=== PATIENT | female | born 1980 | race Caucasian/White ===

== ENCOUNTER 2018-01-22 21:39 | Observation (INO) | payer SELFPAY ==
[2018-01-22 21:40] VITALS: BP 128/80; PULSE 125; RESP 14; TEMP 36.4; O2SAT 99; BMI 24.5
[2018-01-22 22:12] LABS: Absolute Lymphocyte Count 1.37 X10^3/ul (0.83-4.51); Absolute Neutrophil Count 10.2 X10^3/uL (2.0-7.7); Basophil# 0.03 X10^3/uL; Basophil% 0.2 % (0-1); Eosinophil# 0.01 X10^3/uL; Eosinophils% 0.1 % (0-5); Hematocrit 46.1 % (37-47); Hemoglobin 16.1 g/dl (12.0-15.0); Lymphocyte # 1.37 X10^3/ul (4.0); Lymphocyte % 11.3 % (19-41); Mean Corp Hgb Conc 34.9 g/gl (32-36); Mean Corpuscular Hgb 32.4 pg (27.0-32.0); Mean Corpuscular Volume 92.8 fL (81-99); Mean Platelet Vol. 9.4 fl (6.2-12.0); Monocyte# 0.48 X10^3/uL; Neutrophil # 10.24 X10^3/uL (2.7-7.7); Neutrophil % 84.2 % (47-70); Platelet Count 222 K/mm3 (150-450); RBC Distribution Width CV 12.6 % (11.6-14.6); RBC Distribution Width SD 43.1 fl (35.1-43.9); Red Blood Count 4.97 M/mm3 (4.2-5.4); White Blood Count 12.2 K/mm3 (4.4-11.0)
[2018-01-22 22:23] LABS: Anion Gap 12 (5-15); BUN 7 mg/dL (7-18); BUN/Creat Ratio 11.4 RATIO (10-20); Calcium,Total 9.5 mg/dL (8.5-10.1); Chloride 102 mmol/L (98-107); Creatinine, Serum 0.61 mg/dL (0.55-1.02); EST Glomerular Filtration Rate 115 mL/min (>60); Est Glom Filt Rate - Afr Amer 139 mL/min (>60); Estimated Creatinine Clearance 138.39 ml/min; Glucose 125 mg/dL (74-106); Potassium 4.1 mmol/L (3.5-5.1); Sodium Level 135 mmol/L (136-145)
[2018-01-22 22:32] LABS: POSITIVE COUNT NO; POSITIVE DIFFERENTIAL NO; POSITIVE MORPHOLOGY NO
[2018-01-22 22:37] LABS: Red Blood Cells-Urine 0 SEEN /hpf (0-5); White Blood Cells 0 SEEN /hpf (0-5)
[2018-01-22 22:39] LABS: Color, Urine Yellow (Yellow); Glucose, Dipstick Normal (Normal); Ketone-Dipstick 15 mg/dl (Negative); Leukocyte Esterase-Dipstick Negative /ul (Negative); Nitrite-Dipstick Negative (Negative); Occult Blood-Urine 25 /ul (Negative); Protein-Dipstick Negative (Negative); Specific Gravity, Urine 1.025 (1.002-1.030); Urine Bilirubin Dipstick Negative (Negative); Urine Clarity Clear (Clear); Urine Urobilinogen Normal (Normal)
[2018-01-22 22:46] LABS: Squamous Epithelial Cells - UA 0-5 SEEN /hpf (5-10)
[2018-01-22 22:47] LABS: Bacteria 1+ /hpf (None Seen); Mucous, Urine 2+ /hpf (<or=2+)
[2018-01-22 22:56] VITALS: BP 116/87; PULSE 100; RESP 16; O2SAT 97
[2018-01-22] MEDS: Ondansetron 4 MG/2 ML Vial IV (23:03)
[2018-01-22] MEDS: 0.9% Normal Saline 1,000 ML 1000 ML IV (23:03)
[2018-01-22] MEDS: HYDROmorphone 1 MG/ML Syringe IV ×2 (23:05→23:37)
--- NOTE | 2018-01-22 23:11 | ED.DCSUM_ITS ---
- ER Visit Summary Date of Service: 01/22/18 Chief Complaint: [Abdominal pain] History of Present Illness: The patient is a 37 F [presents to the emergency department complaint of abdominal pain that started around 10 PM yesterday evening. Patient states that the pain came on gradually. Pain is been baetriz nuous and radiates to her back. Patient states that she did not even try to eat today. Patient states that she has had a history of pancreatitis in the past. She did drink one beer yesterday but has not been drinking heavily otherwise. Patient denies any fever. She denies any blood in her stool or black tarry stools. She denies any urinary symptoms. Patient does have a history of SVT and she is had prior hysterectomy. Patient has no primary care physician. Patient has had some nausea but no vomiting.] Physical Examination: [HEENT-PERRLA, EOMI. Cranial nerves II through XII grossly intact. TMs clear. Mucous membranes moist. No adenopathy. Cardiovascular-regular rate and rhythm without murmur or ectopy Lungs-clear to auscultation, chest wall stable without crepitus or subcu emphysema Abdomen-normoactive bowel sounds, soft. Patient does have tenderness palpation over the epigastric region and left upper quadrant. Minimal tenderness in the right upper quadrant and she has a negative Fitzgerald sign. There is no rebound, rigidity, or perineal signs. Extremities-intact ?4, normal range of motion, normal pulses, atraumatic] Test Results: [CBC with differential obtained showing a 12.3, hemoglobin 16, hematocrit 46, platelets 222. Chemistries unremarkable. Urinalysis was normal.] Emergency Department Course and Treatment: [] Treatment Plan: [] Disposition: [] Impression: [] This note was generated with [employer] dictation software. It may contain incorrect words, spelling, and punctuation that were not noted in review of the chart prior to signing ED Disposition - Plan for ED Patient: Chief Complaint: Abd Pain Referrals: Care Physician,No Primary [Primary Care Provider] -
[2018-01-22 23:24] LABS: AST(SGOT) 56 U/L (15-37); Alanine Aminotransfer ALT/SGPT 82 U/L (13-56); Alkaline Phosphatase 107 U/L (45-117); Bilirubin, Direct 0.18 mg/dL (0.00-0.30); Globulin 4.2 g/dL (2.2-4.2); Protein, Total 8.2 g/dL (6.4-8.2)
[2018-01-22 23:25] LABS: Lipase 938 U/L (73-393)
--- NOTE | 2018-01-22 23:28 | US_ITS ---
STUDY: ABDOMINAL ULTRASOUND - RIGHT UPPER QUADRANT REASON FOR VISIT: Female, 37 years old. Abdominal pain TECHNIQUE: Ultrasound evaluation of the right upper quadrant was performed with real-time and static tovar-scale imaging. TECHNICAL QUALITY: Adequate. COMPARISON: None. FINDINGS: Liver: The liver measures 21.1 cm. There is increased echogenicity consistent with fatty infiltration. The bile ducts are within normal limits. There is hepatic color flow. The direction of portal flow is hepatopetal. There is no demonstrated mass lesion. Gallbladder: Normal distended gallbladder. The gallbladder wall measures 2 mm. There is a negative sonographic Fitzgerald's sign. There is no pericholecystic fluid. There are no gallstones. Common Bile Duct (C.B.D.): The common bile duct measures 3 mm. Pancreas: Normal size of the head, body and tail of the pancreas. There is normal echogenicity of the pancreas. There is no demonstrated pancreatic mass or cyst. Right Kidney: Normal size of the right kidney. The right kidney measures 12.2 x 5.9 x 4.4 cm. Normal renal cortex. The right cortex measures 1.3 cm. There is no demonstrated renal mass or cyst. There is no right hydronephrosis. US/Gallbladder IMPRESSION: The liver is enlarged and fatty. There is NO mass. There is NO cholelithiasis, cholecystitis or biliary ductal dilatation. Electronically Signed: Gurpreet Ness MD at 0:33 EST , Service support ,
[2018-01-22 23:30] VITALS: BP 133/87; PULSE 103; RESP 16; O2SAT 95
--- NOTE | 2018-01-23 00:39 | HP.PCM_ITS ---
History of Present Illness Date of Admission: 01/23/18 Chief Complaint: abdominal pain The patient is a 37 year old F with a history of recurrent pancreatitis of unknown etiology, endometriosis status post hysterectomy. She was admitted through the ED on 01/23/2018 with a complaint of abdominal pain of one days duration. Pain was sharp, mainly in the epigastric region radiating to her back. Had no aggravating or relieving factors. She denied any assisted fever or chills, nausea vomiting or diarrhea. She states she had about 2 drinks yesterday and also smokes 1 pack daily. She therefore decided to come to the ED since the pain was persistent. Vitals in ED was significant for pulse rate of 103 was otherwise unremarkable. Chemistry was significant for sodium of 135 and lipase of 938 and CBC showed white cell count of 12.2 hemoglobin of 16.1. Gallbladder ultrasound showed enlarged fatty liver with no obvious masses and a normal distended gallbladder with no pericholecystic fluid and no gallstones. Pancreas is also normal. She is been admitted to be managed for acute pancreatitis. [] Past Medical History Past Medical History (Chronic Problems): Chronic Problems Pancreatitis (Chronic) Endometriosis (Chronic) Alcohol abuse (Chronic) Allergies Sulfa (Sulfonamide Antibiotics) Allergy (Verified 01/22/18 21:44) Hives Home Medications: Ambulatory Orders Medication Instructions Recorded NK 01/22/18 Surgical History: - - Hysterectomy. 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 Denies: Diarrhea, Dyspepsia, Hematemesis, Nausea, Melena, Vomiting Genitourinary: Denies: Dysuria Musculoskeletal: Denies: Joint Pain, Joint Tenderness Skin: Denies: Rash, Wounds Neurological: Denies: Numbness, Tingling, Focal weakness Psychiatric: Denies: Anxiety, Depression, Homicidal Ideations, Suicidal Ideations Hematologic/ Lymphatic: Denies: Easy Bruising, Easy Bleeding VTE Information - Inpt Only VTE Present on Admission: No VTE Pharm Prophylaxis ordered?: Yes - Physical Exam General: Alert, Oriented x3, Cooperative, No apparent distress HEENT: Atraumatic, PERRLA, EOMI, Normocephalic Oral: Moist Mucosa Neck: Supple, No JVD, Negative Carotid Bruits Lungs: Clear to auscultation, Normal air movement Cardiovascular: Regular Rhythm, Normal S1, Normal S2, No murmurs, Tachycardic Abdomen: Bowel Sounds Present, Soft, - - Mild epigastric tenderness with no guarding or rebound tenderness. Fitzgerald sign negative. Extremities: No clubbing, No cyanosis, No edema, Capillary Refill Less than 3 Seconds Skin: No rashes, No breakdown Musculoskeletal: No Tenderness to Palpation of Joints or Extremities Lymphatic: No Cervical, Supraclavicular, or Inguinal Adenopathy Neurological: Cranial nerves II-XII grossly intact, Neuro grossly intact, Motor Exam 5/5 strength throughout Psych/Mental Status: Normal Affect, Appropriate, Alert and oriented to time, place, person, mood and affect Vital Signs Temp Pulse Resp BP Pulse Ox 97.6 F L 100 16 116/87 H 97 01/22/18 21:40 01/22/18 22:56 01/22/18 22:56 01/22/18 22:56 01/22/18 22:56 Oxygen Delivery Method Room Air Weight: 175 lb 11.335 oz Body Mass Index (BMI) 24.5 Laboratory Tests Past 24 Hrs 01/22/18 01/22/18 01/22/18 22:03 22:03 22:03 WBC 12.2 H RBC 4.97 Hgb 16.1 H Hct 46.1 MCV 92.8 MCH 32.4 H MCHC 34.9 RDW 12.6 RDW Differential 43.1 Plt Count 222 MPV 9.4 Immature Gran % (Auto) 0.200 Neut % (Auto) 84.2 H Lymph % (Auto) 11.3 L [place] % (Auto) 4.0 Eos % (Auto) 0.1 Baso % (Auto) 0.2 Absolute Neuts (auto) 10.2 H Absolute Lymphs (auto) 1.37 Total Counted Not Reportable Sodium 135 L Potassium 4.1 Chloride 102 Carbon Dioxide 21.0 Anion Gap 12 BUN 7 Creatinine 0.61 Estim Creat Clear Calc 138.39 Est GFR (MDRD) Af Amer 139 Est GFR (MDRD) Non-Af 115 BUN/Creatinine Ratio 11.4 Glucose 125 H Calcium 9.5 Total Bilirubin 0.60 Direct Bilirubin 0.18 AST 56 H ALT 82 H Alkaline Phosphatase 107 Total Protein 8.2 Albumin 4.0 Globulin 4.2 Lipase Urine Color Urine Clarity Urine pH Ur Specific [place] Urine Protein Urine Glucose (UA) Urine Ketones Urine Occult Blood Urine Nitrite Urine Bilirubin Urine Urobilinogen Ur Leukocyte Esterase Urine RBC Urine WBC Ur Squamous Epith Cells Urine Bacteria Urine Mucus 01/22/18 01/22/18 22:03 22:28 WBC RBC Hgb Hct MCV MCH MCHC RDW RDW Differential Plt Count MPV Immature Gran % (Auto) Neut % (Auto) Lymph % (Auto) [place] % (Auto) Eos % (Auto) Baso % (Auto) Absolute Neuts (auto) Absolute Lymphs (auto) Total Counted Sodium Potassium Chloride Carbon Dioxide Anion Gap BUN Creatinine Estim Creat Clear Calc Est GFR (MDRD) Af Amer Est GFR (MDRD) Non-Af BUN/Creatinine Ratio Glucose Calcium Total Bilirubin Direct Bilirubin AST ALT Alkaline Phosphatase Total Protein Albumin Globulin Lipase 938 H Urine Color Yellow Urine Clarity Clear Urine pH 5.0 Ur Specific [place] 1.025 Urine Protein Negative Urine Glucose (UA) Normal Urine Ketones 15 H Urine Occult Blood 25 H Urine Nitrite Negative Urine Bilirubin Negative Urine Urobilinogen Normal Ur Leukocyte Esterase Negative Urine RBC 0 SEEN Urine WBC 0 SEEN Ur Squamous Epith Cells 0-5 SEEN Urine Bacteria 1+ Urine Mucus 2+ Diagnostic Data Gallbladder Ultrasound 01/22/18 23:28 IMPRESSION: The liver is enlarged and fatty. There is NO mass. There is NO cholelithiasis, cholecystitis or biliary ductal dilatation. Electronically Signed: Gurpreet Ness MD at 0:33 EST , Service support , Assessment/Plan All Active Problems Pancreatitis (Acute) Acute recurrent pancreatitis (Acute) 37-year-old female presenting with a 1 day history of epigastric pain. 1. Acute pancreatitis, possibly alcohol induced * epigastric pain present for 1 day; radiating to her back * lipase elevated at 938; gallbladder USG negative for gallstones * had 2 drinks yesterday * will check lipid panel and TGs * admit to med surg * keep NPO; IVF NS @ 150cc/hr * IV morphine prn for pain * will advance diet tomorrow if pain is improved * 2. History of endometriosis s/p hysterectomy: stable DVT prophylaxis: heparin GI prophylaxis: PPI Code Visit OBSV E&M: 70562 Initial observation care L3
--- NOTE | 2018-01-23 00:49 | ED.DCSUM_ITS ---
- ER Visit Summary Date of Service: 01/23/18 Chief Complaint: [Abdominal pain/addendum to initial dictation] History of Present Illness: The patient is a 37 F [the initial dictation] Physical Examination: [See initial dictation] Test Results: [See initial dictation and gallbladder ultrasound obtained showed no evidence for cholecystitis and no gallstones seen.] Emergency Department Course and Treatment: [Patient was medicated with Dilaudid and Zofran. Patient was given normal saline.] Treatment Plan: [Admit for pain control and IV hydration] Disposition: [Admit] Impression: [Acute pancreatitis] This note was generated with [employer] dict[employer] software. It may contain incorrect words, spelling, and punctuation that were not noted in review of the chart prior to signing ED Disposition - Plan for ED Patient: Chief Complaint: Abd Pain Referrals: Care Physician,No Primary [Primary Care Provider] -
[2018-01-23 01:17] VITALS: BP 114/78; PULSE 78; RESP 16; O2SAT 95
[2018-01-23] MEDS: proMETHazine 25 MG/ML Syringe 6.25 MG IV (01:34)
[2018-01-23] MEDS: HYDROmorphone 1 MG/ML Syringe IV ×3 (01:36→05:44)
[2018-01-23] MEDS: 0.9% Normal Saline 1,000 ML 150 ML IV (02:14)
[2018-01-23 03:01] VITALS: RESP 16
[2018-01-23 03:38] VITALS: BP 109/70; PULSE 72; RESP 16; O2SAT 95
[2018-01-23 05:46] VITALS: BP 109/59; PULSE 69; RESP 16; O2SAT 96
[2018-01-23 06:24] VITALS: RESP 16
--- NOTE | 2018-01-23 07:47 | PCM.DC.SUM ---
Discharge Date and Diagnosis Date of Admission: 01/23/18 Date of Discharge: 01/23/18 - Primary Discharge Diagnosis Acute pancreatitis, etiology unclear, probably alcohol induced Patient signed AMA. - Secondary Discharge Diagnosis Chronic Problems Pancreatitis (Chronic) Endometriosis (Chronic) Alcohol abuse (Chronic) Hospital Course and Treatment Imaging Results: 01/22/18 23:28 Gallbladder [US] Stat Summary of Care Provided: The patient is a 37 year old F with history of recurrent admission of acute pancreatitis in the past 2 years was admitted with 1 day history of epigastric pain with radiation to back and elevated lipase 938 suggestive of acute pancreatitis. Patient claims drinking alcohol about 5-6 drinks of beer in 1 month and denies alcohol dependence/problem drinking. She had GB ultrasound was done which showed liver enlarged and fatty with no cholelithiasis, cholecystitis or biliary ductal dilatation. Normal size of head, body and tail of pancreas. No pancreatic mass or cyst. Patient was advised to stay for further treatment of acute pancreatitis but she is adamant on signing AMA and going home. Patient was advised to follow-up PCP. Clinical Impression(s) from Imaging Studies Gallbladder Ultrasound 01/22/18 23:28 IMPRESSION: The liver is enlarged and fatty. There is NO mass. There is NO cholelithiasis, cholecystitis or biliary ductal dilatation. Laboratory Results 01/22/18 22:03: WBC 12.2 H, RBC 4.97, Hgb 16.1 H, Hct 46.1, MCV 92.8, MCH 32.4 H, MCHC 34.9, RDW 12.6, RDW Differential 43.1, Plt Count 222, MPV 9.4, Immature Gran % (Auto) 0.200, Neut % (Auto) 84.2 H, Lymph % (Auto) 11.3 L, [place] % (Auto) 4.0, Eos % (Auto) 0.1, Baso % (Auto) 0.2, Absolute Neuts (auto) 10.2 H, Absolute Lymphs (auto) 1.37, Total Counted Not Reportable 01/22/18 22:03: Sodium 135 L, Potassium 4.1, Chloride 102, Carbon Dioxide 21.0, Anion Gap 12, BUN 7, Creatinine 0.61, Estim Creat Clear Calc 138.39, Est GFR (MDRD) Af Amer 139, Est GFR (MDRD) Non-Af 115, BUN/Creatinine Ratio 11.4, Glucose 125 H, Calcium 9.5 01/22/18 22:03: Total Bilirubin 0.60, Direct Bilirubin 0.18, AST 56 H, ALT 82 H, Alkaline Phosphatase 107, Total Protein 8.2, Albumin 4.0, Globulin 4.2 01/22/18 22:03: Lipase 938 H 01/22/18 22:28: Urine Color Yellow, Urine Clarity Clear, Urine pH 5.0, Ur Specific [place] 1.025, Urine Protein Negative, Urine Glucose (UA) Normal, Urine Ketones 15 H, Urine Occult Blood 25 H, Urine Nitrite Negative, Urine Bilirubin Negative, Urine Urobilinogen Normal, Ur Leukocyte Esterase Negative, Urine RBC 0 SEEN, Urine WBC 0 SEEN, Ur Squamous Epith Cells 0-5 SEEN, Urine Bacteria 1+, Urine Mucus 2+ [] Subjective: Patient states his pain is resolved. Denies abdominal pain, nausea or vomiting. Patient all dressed up in a private dress and sitting on the sofa; about to leave - Physical Exam General: Alert, Oriented x3, Cooperative HEENT: Atraumatic, PERRLA, EOMI, Normocephalic Neck: Supple, No JVD, Negative Carotid Bruits Lungs: Clear to auscultation, Normal air movement, No rhonchi, No wheeze, No rales Cardiovascular: Regular rate, No murmurs Abdomen: Bowel Sounds Present, Soft, - - Mild deep epigastric tenderness with no guarding or rigidity. No rebound tenderness. Extremities: No edema, Capillary Refill Less than 3 Seconds Skin: No rashes, No breakdown Musculoskeletal: No Tenderness to Palpation of Joints or Extremities Neurological: Cranial nerves II-XII grossly intact, Deep Tendon Reflexes 2+/4 and Symmetrical, Neuro grossly intact Psych/Mental Status: Normal Affect, Appropriate Vital Signs Temp Pulse Resp BP Pulse Ox 97.6 F L 69 16 109/59 L 96 01/22/18 21:40 01/23/18 05:46 01/23/18 06:24 01/23/18 05:46 01/23/18 05:46 Oxygen Delivery Method Room Air Weight: 175 lb 11.335 oz Body Mass Index (BMI) 24.5 Laboratory Tests Past 24 Hrs 01/22/18 01/22/18 01/22/18 22:03 22:03 22:03 WBC 12.2 H RBC 4.97 Hgb 16.1 H Hct 46.1 MCV 92.8 MCH 32.4 H MCHC 34.9 RDW 12.6 RDW Differential 43.1 Plt Count 222 MPV 9.4 Immature Gran % (Auto) 0.200 Neut % (Auto) 84.2 H Lymph % (Auto) 11.3 L [place] % (Auto) 4.0 Eos % (Auto) 0.1 Baso % (Auto) 0.2 Absolute Neuts (auto) 10.2 H Absolute Lymphs (auto) 1.37 Total Counted Not Reportable Sodium 135 L Potassium 4.1 Chloride 102 Carbon Dioxide 21.0 Anion Gap 12 BUN 7 Creatinine 0.61 Estim Creat Clear Calc 138.39 Est GFR (MDRD) Af Amer 139 Est GFR (MDRD) Non-Af 115 BUN/Creatinine Ratio 11.4 Glucose 125 H Calcium 9.5 Total Bilirubin 0.60 Direct Bilirubin 0.18 AST 56 H ALT 82 H Alkaline Phosphatase 107 Total Protein 8.2 Albumin 4.0 Globulin 4.2 Lipase Urine Color Urine Clarity Urine pH Ur Specific [place] Urine Protein Urine Glucose (UA) Urine Ketones Urine Occult Blood Urine Nitrite Urine Bilirubin Urine Urobilinogen Ur Leukocyte Esterase Urine RBC Urine WBC Ur Squamous Epith Cells Urine Bacteria Urine Mucus 01/22/18 01/22/18 22:03 22:28 WBC RBC Hgb Hct MCV MCH MCHC RDW RDW Differential Plt Count MPV Immature Gran % (Auto) Neut % (Auto) Lymph % (Auto) [place] % (Auto) Eos % (Auto) Baso % (Auto) Absolute Neuts (auto) Absolute Lymphs (auto) Total Counted Sodium Potassium Chloride Carbon Dioxide Anion Gap BUN Creatinine Estim Creat Clear Calc Est GFR (MDRD) Af Amer Est GFR (MDRD) Non-Af BUN/Creatinine Ratio Glucose Calcium Total Bilirubin Direct Bilirubin AST ALT Alkaline Phosphatase Total Protein Albumin Globulin Lipase 938 H Urine Color Yellow Urine Clarity Clear Urine pH 5.0 Ur Specific [place] 1.025 Urine Protein Negative Urine Glucose (UA) Normal Urine Ketones 15 H Urine Occult Blood 25 H Urine Nitrite Negative Urine Bilirubin Negative Urine Urobilinogen Normal Ur Leukocyte Esterase Negative Urine RBC 0 SEEN Urine WBC 0 SEEN Ur Squamous Epith Cells 0-5 SEEN Urine Bacteria 1+ Urine Mucus 2+ Home Medications: Medications to take at Discharge NK 01/22/18 Primary Care Physician: Care Physician,No Primary [Primary Care Provider] - Medical Necessity - Tobacco Use Smoking Status: Current every day smoker Tobacco Use: Cigarettes - Pack daily Meaningful Use Info Meaningful Use Diagnoses (Choose all that apply): None applicable Code Visit Inpatient E&M: 90165 Disch Hosp
--- OUTSIDE RECORDS SUMMARY | 2018-04-26 06:35 | XMS RPT_ITS ---
:1980 Author Organization OH[facility] Care Team Providers Name Role Phone Primay Care Physicia, No Primary Care Unavailable Koram, Dominique Мария Admitting Unavailable Adolfo Juares Attending Unavailable Koram, Dominique Hsieh Admitting Unavailable Koram, Dominique Мария Attending Unavailable Primay Care Physicia, No Primary Care Unavailable Koram, Dominique Мария Consulting Unavailable PROBLEMS PROBLEMS No Problem Records FoundPROCEDURES PROCEDURES No Procedure Records FoundRESULTS RESULTS DISCHARGE SUMMARY Observed: 01/23/2018 Status: F Source: [place] 7:54 AM [facility] REPOSITORY [facility] Medical Records Department [address] [place] [address] Discharge Summary 01/23/18 0747 MR#: [id number] Acct: [id number] Name: YESIKA ISBELL Rep #: [id number] : 1980 37 From: Adolfo Juares MD PCP: Care Physician, No Primary Status: DIS TAMRA Y Location: [place] [address] Discharge Date and Diagnosis Date of Admission: 01/23/18 Date of Discharge: 01/23/18 - Primary Discharge Diagnosis Acute pancreatitis, etiology unclear, probably alcohol induced Patient signed AMA. - Secondary Discharge Diagnosis Chronic Problems Pancreatitis (Chronic) Endometriosis (Chronic) Alcohol abuse (Chronic) Hospital Course and Treatment Imaging Results: 01/22/18 23:28 Gallbladder [US] Stat Summary of Care Provided: The patient is a 37 year old F with history of recurrent admission of acute pancreatitis in the past 2 years was admitted with 1 day history of epigastric pain with radiation to back and elevated lipase 938 suggestive of acute pancreatitis. Patient claims drinking alcohol about 5-6 drinks of beer in 1 month and denies alcohol dependence/problem drinking. She had GB ultrasound was done which showed liver enlarged and fatty with no cholelithiasis, cholecystitis or biliary ductal dilatation. Normal size of head, body and tail of pancreas. No pancreatic mass or cyst. Patient was advised to stay for further treatment of acute pancreatitis but she is adamant on signing AMA and going home. Patient was advised to follow-up PCP. Clinical Impression(s) from Imaging Studies Gallbladder Ultrasound 01/22/18 23:28 IMPRESSION: The liver is enlarged and fatty. There is NO mass. There is NO cholelithiasis, cholecystitis or biliary ductal dilatation. Laboratory Results 01/22/18 22:03: WBC 12.2 H, RBC 4.97, Hgb 16.1 H, Hct 46.1, MCV 92.8, MCH 32.4 H, MCHC 34.9, RDW 12.6, RDW Differential 43.1, Plt Count 222, MPV 9.4, Immature Gran % (Auto) 0.200, Neut % (Auto) 84.2 H, Lymph % (Auto) 11.3 L, Sutter % (Auto) 4.0, Eos % (Auto) 0.1, Baso % (Auto) 0.2, Absolute Neuts (auto) 10.2 H, Absolute Lymphs (auto) 1.37, Total Counted Not Reportable 01/22/18 22:03: Sodium 135 L, Potassium 4.1, Chloride 102, Carbon Dioxide 21.0, Anion Gap 12, BUN 7, Creatinine 0.61, Estim Creat Clear Calc 138.39, Est GFR (MDRD) Af Amer 139, Est GFR (MDRD) Non-Af 115, BUN/Creatinine Ratio 11.4, Glucose 125 H, Calcium 9.5 01/22/18 22:03: Total Bilirubin 0.60, Direct Bilirubin 0.18, AST 56 H, ALT 82 H, Alkaline Phosphatase 107, Total Protein 8.2, Albumin 4.0, Globulin 4.2 01/22/18 22:03: Lipase 938 H 01/22/18 22:28: Urine Color Yellow, Urine Clarity Clear, Urine pH 5.0, Ur Specific [place] 1.025, Urine Protein Negative, Urine Glucose (UA) Normal, Urine Ketones 15 H, Urine Occult Blood 25 H, Urine Nitrite Negative, Urine Bilirubin Negative, Urine Urobilinogen Normal, Ur Leukocyte Esterase Negative, Urine RBC 0 SEEN, Urine WBC 0 SEEN, Ur Squamous Epith Cells 0-5 SEEN, Urine Bacteria 1+, Urine Mucus 2+ [] Subjective: Patient states his pain is resolved. Denies abdominal pain, nausea or vomiting. Patient all dressed up in a private dress and sitting on the sofa; about to leave - Physical Exam General: Alert, Oriented x3, Cooperative HEENT: Atraumatic, PERRLA, EOMI, Normocephalic Neck: Supple, No JVD, Negative Carotid Bruits Lungs: Clear to auscultation, Normal air movement, No rhonchi, No wheeze, No rales Cardiovascular: Regular rate, No murmurs Abdomen: Bowel Sounds Present, Soft, - - Mild deep epigastric tenderness with no guarding or rigidity. No rebound tenderness. Extremities: No edema, Capillary Refill Less than 3 Seconds Skin: No rashes, No breakdown Musculoskeletal: No Tenderness to Palpation of Joints or Extremities Neurological: Cranial nerves II-XII grossly intact, Deep Tendon Reflexes 2+/4 and Symmetrical, Neuro grossly intact Psych/Mental Status: Normal Affect, Appropriate Vital Signs Temp Pulse Resp BP Pulse Ox 97.6 F L 69 16 109/59 L 96 01/22/18 21:40 01/23/18 05:46 01/23/18 06:24 01/23/18 05:46 01/23/18 05:46 Oxygen Delivery Method Room Air Weight: 175 lb 11.335 oz Body Mass Index (BMI) 24.5 Laboratory Tests Past 24 Hrs WBC 12.2 H RBC 4.97 Hgb 16.1 H Hct 46.1 WBC RBC Hgb Hct MCV MCH MCHC RDW RDW Differential Plt Count MPV Home Medications: Medications to take at Discharge NK 01/22/18 Primary Care Physician: Care Physician,No Primary [Primary Care Provider] - Medical Necessity - Tobacco Use Smoking Status: Current every day smoker Tobacco Use: Cigarettes - Pack daily Meaningful Use Info Meaningful Use Diagnoses (Choose all that apply): None applicable Code Visit Inpatient E AND M: 46074 Disch Hosp 01/23/18 0754 <Electronically signed by Adolfo Juares MD> Date Adolfo Juares MD Cosigner Signature (if applicable): Date CC: No Primary Care Physician; Adolfo Juares MD Signed HISTORY AND PHYSICAL Observed: 01/23/2018 Status: F Source: [place] EXAM 6:37 AM [facility] REPOSITORY [facility] Medical Records Department [address] [place] [address] History and Physical 01/23/18 0039 MR#: [id number] Acct: [id number] Name: YESIKA ISBELL Rep #: [id number] : 1980 37 From: Dominique Walker MD PCP: Care Physician, No Primary Status: ADM TAMRA Y Location: [place] [address] History of Present Illness Date of Admission: 01/23/18 Chief Complaint: abdominal pain The patient is a 37 year old F with a history of recurrent pancreatitis of unknown etiology, endometriosis status post hysterectomy. She was admitted through the ED on 01/23/2018 with a complaint of abdominal pain of one days duration. Pain was sharp, mainly in the epigastric region radiating to her back. Had no aggravating or relieving factors. She denied any assisted fever or chills, nausea vomiting or diarrhea. She states she had about 2 drinks yesterday and also smokes 1 pack daily. She therefore decided to come to the ED since the pain was persistent. Vitals in ED was significant for pulse rate of 103 was otherwise unremarkable. Chemistry was significant for sodium of 135 and lipase of 938 and CBC showed white cell count of 12.2 hemoglobin of 16.1. Gallbladder ultrasound showed enlarged fatty liver with no obvious masses and a normal distended gallbladder with no pericholecystic fluid and no gallstones. Pancreas is also normal. She is been admitted to be managed for acute pancreatitis. [] Past Medical History Past Medical History (Chronic Problems): Chronic Problems Pancreatitis (Chronic) Endometriosis (Chronic) Alcohol abuse (Chronic) Allergies Sulfa (Sulfonamide Antibiotics) Allergy (Verified 01/22/18 21:44) Hives Home Medications: Ambulatory Orders Medication Instructions Recorded NK 01/22/18 Surgical History: - - Hysterectomy. 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 Denies: Diarrhea, Dyspepsia, Hematemesis, Nausea, Melena, Vomiting Genitourinary: Denies: Dysuria Musculoskeletal: Denies: Joint Pain, Joint Tenderness Skin: Denies: Rash, Wounds Neurological: Denies: Numbness, Tingling, Focal weakness Psychiatric: Denies: Anxiety, Depression, Homicidal Ideations, Suicidal Ideations Hematologic/ Lymphatic: Denies: Easy Bruising, Easy Bleeding VTE Information - Inpt Only VTE Present on Admission: No VTE Pharm Prophylaxis ordered?: Yes - Physical Exam General: Alert, Oriented x3, Cooperative, No apparent distress HEENT: Atraumatic, PERRLA, EOMI, Normocephalic Oral: Moist Mucosa Neck: Supple, No JVD, Negative Carotid Bruits Lungs: Clear to auscultation, Normal air movement Cardiovascular: Regular Rhythm, Normal S1, Normal S2, No murmurs, Tachycardic Abdomen: Bowel Sounds Present, Soft, - - Mild epigastric tenderness with no guarding or rebound tenderness. Fitzgerald sign negative. Extremities: No clubbing, No cyanosis, No edema, Capillary Refill Less than 3 Seconds Skin: No rashes, No breakdown Musculoskeletal: No Tenderness to Palpation of Joints or Extremities Lymphatic: No Cervical, Supraclavicular, or Inguinal Adenopathy Neurological: Cranial nerves II-XII grossly intact, Neuro grossly intact, Motor Exam 5/5 strength throughout Psych/Mental Status: Normal Affect, Appropriate, Alert and oriented to time, place, person, mood and affect Vital Signs Temp Pulse Resp BP Pulse Ox 97.6 F L 100 16 116/87 H 97 01/22/18 21:40 01/22/18 22:56 01/22/18 22:56 01/22/18 22:56 01/22/18 22:56 Oxygen Delivery Method Room Air Weight: 175 lb 11.335 oz Body Mass Index (BMI) 24.5 Laboratory Tests Past 24 Hrs WBC 12.2 H RBC 4.97 Hgb 16.1 H Hct 46.1 WBC RBC Hgb Hct MCV MCH MCHC RDW RDW Differential Plt Count MPV Diagnostic Data Gallbladder Ultrasound 01/22/18 23:28 IMPRESSION: The liver is enlarged and fatty. There is NO mass. There is NO cholelithiasis, cholecystitis or biliary ductal dilatation. Electronically Signed: Gurpreet Ness MD at 0:33 EST , Service support , Assessment/Plan All Active Problems Pancreatitis (Acute) Acute recurrent pancreatitis (Acute) 37-year-old female presenting with a 1 day history of epigastric pain. 1. Acute pancreatitis, possibly alcohol induced * epigastric pain present for 1 day; radiating to her back * lipase elevated at 938; gallbladder USG negative for gallstones * had 2 drinks yesterday * will check lipid panel and TGs * admit to med surg * keep NPO; IVF NS @ 150cc/hr * IV morphine prn for pain * will advance diet tomorrow if pain is improved * 2. History of endometriosis s/p hysterectomy: stable DVT prophylaxis: heparin GI prophylaxis: PPI Code Visit OBSV E AND M: [id number] Initial observation care 01/23/18 0637 <Electronically signed by Dominique Walker MD> Date Dominique Walker MD Cosigner Signature: Date (if applicable) CC: No Primary Care Physician; Dominique Walker MD Signed EMERGENCY DEPARTMENT Observed: 01/23/2018 Status: F Source: ROB SUMMARY 12:49 AM [facility] REPOSITORY [facility] Medical Records Department [address] [place] [address] Emergency Department Summary 01/23/1846 MR#: [id number] Acct: [id number] Name: YESIKA ISBELL Rep #: [id number] : 1980 37 From: Ryan Sotelo DO PCP: Care Physician, No Primary Status: REG ER - ER Visit Summary Date of Service: 01/23/18 Chief Complaint: [Abdominal pain/addendum to initial dictation] History of Present Illness: The patient is a 37 F [the initial dictation] Physical Examination: [See initial dictation] Test Results: [See initial dictation and gallbladder ultrasound obtained showed no evidence for cholecystitis and no gallstones seen.] Emergency Department Course and Treatment: [Patient was medicated with Dilaudid and Zofran. Patient was given normal saline.] Treatment Plan: [Admit for pain control and IV hydration] Disposition: [Admit] Impression: [Acute pancreatitis] This note was generated with Nipendo dictation software. It may contain incorrect words, spelling, and punctuation that were not noted in review of the chart prior to signing ED Disposition - Plan for ED Patient: Chief Complaint: Abd Pain Referrals: Care Physician,No Primary [Primary Care Provider] - What to do if you have Problems For any increased pain, shortness of breath, bleeding, nausea or vomiting, chest pain, or any unexpected problems, contact your Primary Care Provider. Call [facility] ([phone]) or report to the closest Emergency Room. Call 911 if necessary. 01/23/1848 <Electronically signed by Ryan Sotelo DO> Date Ryan Sotelo DO Cosigner Signature (If Indicated): Date CC: No Primary Care Physician GALLBLADDER Observed: 01/22/2018 Status: F Source: ROB 11:28 PM [facility] REPOSITORY [facility] Imaging Services [address] [place] [address] Gallbladder MR#: [id number] Acct: [id number] Name: YESIKA ISBELL Rep #: [id number] : 1980 F 37 From: Gurpreet Ness PCP: Care Physician, No Primary Status: REG ER Study: Gallbladder Date of Exam: 01/22/18 Exam# [id number] Ordering Dr: Ryan Sotelo DO STUDY: ABDOMINAL ULTRASOUND - RIGHT UPPER QUADRANT REASON FOR VISIT: Female, 37 years old. Abdominal pain TECHNIQUE: Ultrasound evaluation of the right upper quadrant was performed with real-time and static tovar-scale imaging. TECHNICAL QUALITY: Adequate. COMPARISON: None. FINDINGS: Liver: The liver measures 21.1 cm. There is increased echogenicity consistent with fatty infiltration. The bile ducts are within normal limits. There is hepatic color flow. The direction of portal flow is hepatopetal. There is no demonstrated mass lesion. Gallbladder: Normal distended gallbladder. The gallbladder wall measures 2 mm. There is a negative sonographic Fitzgerald's sign. There is no pericholecystic fluid. There are no gallstones. Common Bile Duct (C.B.D.): The common bile duct measures 3 mm. Pancreas: Normal size of the head, body and tail of the pancreas. There is normal echogenicity of the pancreas. There is no demonstrated pancreatic mass or cyst. Right Kidney: Normal size of the right kidney. The right kidney measures 12.2 x 5.9 x 4.4 cm. Normal renal cortex. The right cortex measures 1.3 cm. There is no demonstrated renal mass or cyst. There is no right hydronephrosis. US/Gallbladder IMPRESSION: The liver is enlarged and fatty. There is NO mass. There is NO cholelithiasis, cholecystitis or biliary ductal dilatation. Electronically Signed: Gurpreet Ness MD at 0:33 EST , Service support , CC: No Primary Care Physician; Ryan Sotelo DO Catcher Plug: Signed EMERGENCY DEPARTMENT Observed: 01/22/2018 Status: F Source: ROB SUMMARY 11:11 PM [facility] REPOSITORY [facility] Medical Records Department [address] [place] [address] Emergency Department Summary 01/22/18 2309 MR#: [id number] Acct: [id number] Name: YESIKA ISBELL Rep #: [id number] : 1980 37 From: Ryan Sotelo DO PCP: Care Physician, No Primary Status: REG ER - ER Visit Summary Date of Service: 01/22/18 Chief Complaint: [Abdominal pain] History of Present Illness: The patient is a 37 F [presents to the emergency department complaint of abdominal pain that started around 10 PM yesterday evening. Patient states that the pain came on gradually. Pain is been continuous and radiates to her back. Patient states that she did not even try to eat today. Patient states that she has had a history of pancreatitis in the past. She did drink one beer yesterday but has not been drinking heavily otherwise. Patient denies any fever. She denies any blood in her stool or black tarry stools. She denies any urinary symptoms. Patient does have a history of SVT and she is had prior hysterectomy. Patient has no primary care physician. Patient has had some nausea but no vomiting.] Physical Examination: [HEENT-PERRLA, EOMI. Cranial nerves II through XII grossly intact. TMs clear. Mucous membranes moist. No adenopathy. Cardiovascular-regular rate and rhythm without murmur or ectopy Lungs-clear to auscultation, chest wall stable without crepitus or subcu emphysema Abdomen-normoactive bowel sounds, soft. Patient does have tenderness palpation over the epigastric region and left upper quadrant. Minimal tenderness in the right upper quadrant and she has a negative Fitzgerald sign. There is no rebound, rigidity, or perineal signs. Extremities-intact 4, normal range of motion, normal pulses, atraumatic] Test Results: [CBC with differential obtained showing a 12.3, hemoglobin 16, hematocrit 46, platelets 222. Chemistries unremarkable. Urinalysis was normal.] Emergency Department Course and Treatment: [] Treatment Plan: [] Disposition: [] Impression: [] This note was generated with Nipendo dictation software. It may contain incorrect words, spelling, and punctuation that were not noted in review of the chart prior to signing ED Disposition - Plan for ED Patient: Chief Complaint: Abd Pain Referrals: Care Physician,No Primary [Primary Care Provider] - What to do if you have Problems For any increased pain, shortness of breath, bleeding, nausea or vomiting, chest pain, or any unexpected problems, contact your Primary Care Provider. Call [facility] ([phone]) or report to the closest Emergency Room. Call 911 if necessary. 01/22/18 2311 <Electronically signed by Ryan Sotelo DO> Date Ryan Sotelo DO Cosigner Signature (If Indicated): Date CC: No Primary Care Physician URINALYSIS, COMPLETE Collected: 01/22/2018 Status: F Source: ROB 10:28 PM [facility] REPOSITORY Order Comment: Order Date: 01/22/18 Has pt arrived? Y How was Urine Obtained? RADIO ENGINEER TO SPECIFY TYPE CODE TESTS RESULT OUT OF RANGE REFERENCE UNITS LAB L400.3000 Yellow COLOR Normal Yellow LAB L400.3050 Clear Normal CLARITY Clear LAB L400.3200 Normal mg/dl Normal GLUCOSE, UR Normal LAB L400.3300 Negative mg/dL Normal BILIRUBIN URINE Negative LAB L400.3400 Negative mg/dl High 15 KETONE UR LAB L400.3465 1.002-1.030 Normal SP.GR. DIPSTX 1.025 LAB L400.3550 5.0 - 8.0 pH UR Normal 5.0 LAB L400.3600 Negative mg/dl PROT Normal DIPSTX Negative LAB L400.3700 Normal mg/dl Normal UROBILI Normal LAB L400.3750 Negative Normal NITRITE UR Negative LAB L400.3780 Negative /ul High 25 OCCULT BLOOD-UR LAB L400.3800 Negative /ul LEUK Normal ESTERASE Negative LAB L400.4050 0-5 /hpf WBC 0 Normal SEEN LAB L400.4100 0-5 /hpf 0 Normal RBC-UA SEEN LAB L400.4150 5-10 /hpf SQUAM Normal EPI 0-5 SEEN LAB L400.4300 None Seen /hpf 1+ Normal BACTERIA LAB L400.4350 <or=2+ /hpf 2+ Normal MUCUS, URINE Performed By: #### L400.0001 #### [facility] [address] [place], [address] BASIC METABOLIC Collected: 01/22/2018 Status: F Source: [place] PROFILE (BMP) 10:03 PM [facility] REPOSITORY TYPE CODE TESTS RESULT OUT OF RANGE REFERENCE UNITS LAB L501.0100 74-106 mg/dL High GLU 125 Result Comment: Fasting Glucose result from 100 to 125 mg/dL suggests IMPAIRED HOMEOSTASIS per A.D.A. criteria. Please note revised GLUCOSE reference range effective 2017. LAB L501.1000 7-18 mg/dL Normal BUN 7 LAB L501.1100 0.55-1.02 mg/dL Normal CREAT,SERUM 0.61 Result Comment: The validity of the calculated GFR AND GFRAA in patients over 70 years has not been determined. Clinical correlation is essential. LAB L501.1110 >60 mL/min Normal EST GFR 115 Result Comment: Non- GFR Calc LAB L501.1115 >60 mL/min Normal EST GFR - AA 139 Result Comment: GFR Calc LAB L501.1255 ml/min Normal Estimated CRCL 138.39 LAB L501.1300 10-20 RATIO BUN/CRE Normal 11.4 LAB L501.2200 8.5-10 mg/dL .1 CA Normal 9.5 LAB L501.5300 136-14 mmol/L Low 5 NA 135 LAB L501.5600 3.5-5. mmol/L 1 K Normal 4.1 Result Comment: Slight Hemolysis, Result may be falsely increased. LAB L501.5900 98-107 mmol/L Normal CL 102 LAB L501.6100 21.0-32.0 mmol/L Normal CO2 21.0 LAB L501.6200 5-15 Normal GAP 12 Performed By: #### L500.2500, L100.0100 #### [facility] [address] [place], [place], [id number] CBC W/DIFF, AUTOMATED Collected: 01/22/2018 Status: F Source: [place] 10:03 PM [facility] REPOSITORY TYPE CODE TESTS RESULT OUT OF RANGE REFERENCE UNITS LAB L100.1000 4.4-11.0 K/mm3 High WBC 12.2 LAB L100.1200 4.2-5.4 M/mm3 Normal RBC 4.97 LAB L100.1300 12.0-15.0 g/dl High HGB 16.1 LAB L100.1400 37-47 % Normal HCT 46.1 LAB L100.1500 81-99 fL Normal MCV 92.8 LAB L100.1600 27.0-32.0 pg High MCH 32.4 LAB L100.1700 32-36 g/gl Normal MCHC 34.9 LAB L100.1810 11.6-14.6 % Normal RDW CV 12.6 LAB L100.1820 35.1-43.9 fl Normal RDW SD 43.1 LAB L100.1900 150-450 K/mm3 Normal PLT 222 LAB L100.2000 6.2-12.0 fl Normal MPV 9.4 LAB L100.2100 47-70 % High NEUT% 84.2 LAB L100.2200 19-41 % Low LY% 11.3 LAB L100.2300 0-10 % Normal MONO% 4.0 LAB L100.2400 0-5 % Normal EO% 0.1 LAB L100.2500 0-1 % Normal BASO% 0.2 LAB L100.2550 0.0-0.9 % Normal IM GRAN % 0.200 Result Comment: IG% - Immature Granulocytes (promyelocytes, myelocytes and metamyelocytes) > 1% indicates that a LEFT SHIFT is Present. LAB L100.2620 2.0-7.7 X10 3/uL High Absolute Neut 10.2 LAB L100.2720 0.83-4.51 X10 3/ul Normal Absolute Lymph 1.37 Performed By: #### L500.2500, L100.0100 #### [facility] [address] [place], [address] LIVER PROFILE Collected: 01/22/2018 Status: F Source: [place] 10:03 PM [facility] REPOSITORY TYPE CODE TESTS RESULT OUT OF RANGE REFERENCE UNITS LAB L501.1500 6.4-8.2 g/dL Normal T PROT 8.2 LAB L501.1800 3.2-5.0 g/dL Normal ALB 4.0 LAB L501.1950 2.2-4.2 g/dL Normal GLOB 4.2 LAB L501.4100 15-37 U/L High AST 56 Result Comment: Slight Hemolysis, Result may be falsely increased. LAB L501.4305 45-117 U/L Normal ALK P 107 LAB L501.4405 13-56 U/L High ALT 82 LAB L501.4600 0.20-1.00 mg/dL Normal T BILI 0.60 LAB L501.4700 0.00-0.30 mg/dL Normal D BILI 0.18 Performed By: #### L500.3400 #### [facility] [address] [place], [address] LIPASE Collected: 01/22/2018 Status: F Source: [place] 10:03 PM [facility] REPOSITORY TYPE CODE TESTS RESULT OUT OF REFERENCE UNITS RANGE LAB L501.2450 73-393 U/L High LIPASE 938 Performed By: #### L501.2450 #### [facility] [address] [place], [address] ALLERGIES ALLERGIES DATE TYPE / CODE NAME / CODE REACTION SEVERITY SOURCE 01/22/2018 Drug Sulfa Hives Unknown [facility] Allergy/4160 (Sulfonamide Hospital 76537(SNOMED Antibiotics)/ Repository CT) [id number](RX NORM) ENCOUNTERS ENCOUNTERS ADMIT/DISCHARGE ACCOUNT ADMITTING ENCOUNTER LOCATION SOURCE NUMBER CLASS 01/23/2018/ [id number] Dominique Walker Ambulatory [place] [address] [facility] ing:GY2Yavo: Repository [id number]: 1 01/23/2018 [id number] Dominique Walker Ambulatory BMSBuilding:[address] [place] [address] MS.[facility] Repository PAYERS PAYERS ENCOUNTER GUARANTOR PAYER SUBSCRIBER SOURCE 01/23/2018 YESIKA Patel Primary NOT GIVENUNK [place] [id number] Insurance:SELF PAY [facility] [address]Bjy: (330) Number: Effective Repository [phone] () Date:2018-01-22 01/23/2018 YESIKA Patel Primary NOT GIVENUNK [id number] Insurance:SELF PAY [facility] [id number]: ([phone]) Number: Effective Repository [phone] () Date:2018-01-23
== END 2018-01-23 07:50 | disposition left against medical advice (07) ==
LOC: ED 23:01 → MS2 01-23 02:33
PROVIDERS: Admitting Provider Student in an Organized Health Care Education/Training Program; Emergency Provider Emergency Medicine; Visit Provider Internal Medicine
DX: K85.90 Acute pancreatitis without necrosis or infection, unspecified (principal); F17.210 Nicotine dependence, cigarettes, uncomplicated
CPT/HCPCS: 76705; 80048; 80076; 81001; 83690; 85025; 96361; 96374; 96375; 96376; 99285; J7030; A4216; J2405

== ENCOUNTER 2019-07-28 23:01 | Observation (INO) | payer MEDICAID, SELFPAY ==
[2019-07-28 23:02] VITALS: BP 150/89; PULSE 94; RESP 18; TEMP 36.4; O2SAT 99; BMI 21.6
--- NOTE | 2019-07-28 23:28 | RAD_ITS ---
STUDY: X-RAY CHEST REASON FOR EXAM: Female, 38 years old. C/o cp TECHNIQUE: Single AP portable view of the chest. COMPARISON: None. FINDINGS: There are superimposed monitor leads. There is hyperinflation. There is no focal parenchymal abnormality. There is no demonstrated pleural abnormality. Normal size heart. Normal mediastinum and nina. Normal visualized pulmonary arteries. Normal visualized aortic arch and descending thoracic aorta. Normal visualized thoracic spine. Normal visualized ribs, clavicles, and shoulders. There is no demonstrated abnormality of the visualized soft tissue structures of the upper abdomen. RAD/Chest 1 View (Portable) IMPRESSION: Hyperinflation. No pulmonary edema, congestive heart failure or confluent pneumonia. Electronically Signed: Deepthi Arrington MD at 0:39 EDT , Service support ,
--- NOTE | 2019-07-28 23:29 | EKG12_ITS ---
Test Reason : ABD PAIN Blood Pressure : / mmHG Vent. Rate : 065 BPM Atrial Rate : 065 BPM P-R Int : 140 ms QRS Dur : 084 ms QT Int : 408 ms P-R-T Axes : 009 086 026 degrees QTc Int : 424 ms Normal sinus rhythm Normal ECG Confirmed by MICHELLE DE LA CRUZ ([id number]), newspaper photo editor SULEMA HAWKINS ([id number]) on 08/05/2019 8:18:05 AM Referred By: Confirmed By:MICHELLE DE LA CRUZ
[2019-07-28] MEDS: Ondansetron 4 MG/2 ML Vial IV (23:38)
[2019-07-28] MEDS: Ketorolac 15 MG/ML Vial IV (23:38)
[2019-07-28] MEDS: 0.9% Normal Saline 1,000 ML 1000 ML IV (23:38)
--- NOTE | 2019-07-28 23:54 | ED.VISSUMM ---
- ER Visit Summary Date of Service: 07/28/19 Chief Complaint: Abdominal pain History of Present Illness: The patient is a 38 F presenting with abdominal pain. Patient states this started around 4 PM. She states it feels like her previous pancreatitis. She states her 1 year ago and she was drinking heavily yesterday. 2 hours ago she started to feel anxious that she may have pancreatitis and developed chest pain. This has been intermittent. She denies shortness of breath. Denies fever. Denies known exposure to COVID. Denies PE/DVT risk factors. She is a smoker, denies other CAD risk factors. Physical Examination: Vitals are stable. Patient is afebrile. Alert no acute distress. HEENT exam is unremarkable. Neck is supple. Lungs are clear and equal bilaterally. Heart is regular rate and rhythm. Abdomen is soft left upper quadrant tenderness with no guarding or rebound Extremities are unremarkable. Skin is warm and dry. No focal neurologic deficit. Remainder of exam is unremarkable. Emergency Department Course and Treatment: Patient was given IV fluids, Toradol, Zofran. EKG is sinus rhythm rate of 65 with no acute ischemic changes. Chest x-ray is unremarkable. CBC, chemistries unremarkable other than potassium 3.2. ALT 82, AST 63, lipase 1035. Troponin is negative. Patient refused CT scan. Ultrasound is not available at this time of day. Her pancreatitis is likely secondary to alcohol use. Will discuss with hospitalist for admission. Disposition: Admission Impression: Pancreatitis This note was generated with [employer] dictation software. It may contain incorrect words, spelling, and punctuation that were not noted in review of the chart prior to signing ED Disposition - Plan for ED Patient: Referrals: Care Physician,No Primary [Primary Care Provider] -
[2019-07-28 23:55] LABS: Absolute Lymphocyte Count 2.13 X10^3/uL (0.83-4.51); Absolute Neutrophil Count 6.2 X10^3/uL (2.0-7.7); Basophil# 0.04 X10^3/uL; Basophil% 0.4 % (0-1); Eosinophil# 0.04 X10^3/uL; Eosinophils% 0.4 % (0-5); Hematocrit 42.7 % (37-47); Hemoglobin 14.4 g/dL (12.0-15.0); Lymphocyte # 2.13 X10^3/ul (4.0); Lymphocyte % 23.7 % (19-41); Mean Corp Hgb Conc 33.7 g/dL (32-36); Mean Corpuscular Hgb 32.2 pg (27.0-32.0); Mean Corpuscular Volume 95.5 fL (81-99); Mean Platelet Vol. 9.8 fl (6.2-12.0); Monocyte# 0.54 X10^3/uL; NRBC Flagged by Analyzer 0 % (0-5); Neutrophil # 6.21 X10^3/uL (2.7-7.7); Neutrophil % 69.2 % (47-70); Platelet Count 210 K/mm3 (150-450); RBC Distribution Width CV 12.5 % (11.6-14.6); RBC Distribution Width SD 43.4 fl (35.1-43.9); Red Blood Count 4.47 M/mm3 (4.2-5.4)
[2019-07-29 00:02] LABS: ALB/GLOB Ratio 0.9 RATIO (0.9-2.4); AST(SGOT) 63 U/L (15-37); Alanine Aminotransfer ALT/SGPT 82 U/L (13-56); Albumin, Serum 3.5 g/dL (3.2-5.0); Alkaline Phosphatase 103 U/L (45-117); Anion Gap 7 (5-15); BUN 8 mg/dL (7-18); BUN/Creat Ratio 15.4 RATIO (10-20); Calcium,Total 8.4 mg/dL (8.5-10.1); Chloride 105 mmol/L (98-107); Creatinine, Serum 0.52 mg/dL (0.55-1.02); EST Glomerular Filtration Rate 138 mL/min (>60); Est Glom Filt Rate - Afr Amer 167 mL/min (>60); Estimated Creatinine Clearance 159.62 ml/min; Globulin 3.9 g/dL (2.2-4.2); Glucose 99 mg/dL (74-106); Lipase 1035 U/L (73-393); Potassium 3.2 mmol/L (3.5-5.1); Protein, Total 7.4 g/dL (6.4-8.2); Sodium Level 138 mmol/L (136-145)
[2019-07-29] MEDS: Morphine 4 MG/ML Syringe 6 MG IV (00:20)
[2019-07-29 00:23] VITALS: BP 153/96; PULSE 72; RESP 16; TEMP 36.9; O2SAT 99
--- NOTE | 2019-07-29 00:32 | PCM.HP.STD ---
Problem List (1) Acute recurrent pancreatitis Status: Acute (2) Alcohol abuse Status: Chronic History of Present Illness Date of Admission: 07/29/19 Chief Complaint: abdominal pain The patient is a 38 year old male patient with a significant past medical history of alcohol pancreatitis presents the emergency room with right upper quadrant abdominal pain. The pain began yesterday after drinking on the anniversary of her 's passing away 1 year ago. The patient is also on Subutex for addiction with narcotics and states she has been sober for 4 years. The patient does complain of nausea with intense abdominal pain in the right upper quadrant and her lipase is 1035 today. Otherwise laboratory studies are unremarkable the patient denies chest pain or shortness of breath, fevers or chills at this time. She will be admitted to general medical floor and treated for pancreatitis. Past Medical History Past Medical History (Chronic Problems): Chronic Problems Pancreatitis (Chronic) Endometriosis (Chronic) Alcohol abuse (Chronic) Allergies Sulfa (Sulfonamide Antibiotics) Allergy (Verified 07/28/19 23:27) Hives Home Medications: Ambulatory Orders Medication Instructions Recorded Buprenorphine HCl 8 mg SL BID 07/28/19 Surgical History: - - Hysterectomy. 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 Denies: Vomiting Genitourinary: Denies: Dysuria Musculoskeletal: Denies: Joint Pain, Joint Tenderness Skin: Denies: Rash, Wounds Neurological: Denies: Numbness, Tingling, Focal weakness Psychiatric: Reports: Anxiety. Denies: Depression, Homicidal Ideations, Suicidal Ideations Hematologic/ Lymphatic: Denies: Easy Bruising, Easy Bleeding VTE Information - Inpt Only VTE Present on Admission: No VTE Mechan Device Prophylaxis: None VTE Pharm Prophylaxis ordered?: Yes - Physical Exam Vitals/I&O's: Vital Signs Temp Pulse Resp BP Pulse Ox 98.4 F 72 16 153/96 H 99 07/29/19 00:23 07/29/19 00:23 07/29/19 00:23 07/29/19 00:23 07/29/19 00:23 Oxygen Delivery Method Room Air Weight: 155 lb Body Mass Index (BMI) 21.6 General: Alert, Oriented x3, Cooperative HEENT: Atraumatic, Normocephalic Neck: Supple Lungs: Clear to auscultation, Normal air movement Cardiovascular: Regular rate, Normal S1, Normal S2, No murmurs Abdomen: Bowel Sounds Present, Tender Extremities: No edema, Capillary Refill Less than 3 Seconds Skin: No rashes, No breakdown Musculoskeletal: No Tenderness to Palpation of Joints or Extremities Neurological: Neuro grossly intact Psych/Mental Status: Appropriate, Anxious Laboratory Results 07/28/19 23:30: WBC 9.0, RBC 4.47, Hgb 14.4, Hct 42.7, MCV 95.5, MCH 32.2 H, MCHC 33.7, RDW Std Deviation 43.4, RDW Coeff of Bebo 12.5, Plt Count 210, MPV 9.8, Immature Gran % (Auto) 0.300, Neut % (Auto) 69.2, Lymph % (Auto) 23.7, [place] % (Auto) 6.0, Eos % (Auto) 0.4, Baso % (Auto) 0.4, Absolute Neuts (auto) 6.2, Absolute Lymphs (auto) 2.13, Nucleated RBC % 0 07/28/19 23:30: Sodium 138, Potassium 3.2 L, Chloride 105, Carbon Dioxide 26.0, Anion Gap 7, BUN 8, Creatinine 0.52 L, Estim Creat Clear Calc 159.62, Est GFR (MDRD) Af Amer 167, Est GFR (MDRD) Non-Af 138, BUN/Creatinine Ratio 15.4, Glucose 99, Calcium 8.4 L, Total Bilirubin 0.50, AST 63 H, ALT 82 H, Alkaline Phosphatase 103, Troponin I < 0.015, Total Protein 7.4, Albumin 3.5, Globulin 3.9, Albumin/Globulin Ratio 0.9, Lipase 1035 H 07/28/19 23:30: Ethyl Alcohol 41.0 Assessment/Plan All Active Problems Pancreatitis (Acute) Acute recurrent pancreatitis (Acute) Chronic Problems Pancreatitis (Chronic) Endometriosis (Chronic) Alcohol abuse (Chronic) Plan 1. Acute pancreatitis?admit to general medical floor, n.p.o., IV normal saline at 125 cc/h, morphine 4 mg every 2 hours as needed pain 2. Grief reaction/loss of spouse 1 year ago?recommend counseling after discharge 3. Alcohol abuse?patient informed that she will get recurrent pancreatitis should she continue to drink 4. Tobacco abuse?nicotine patch 5. DVT prophylaxis?low molecular weight heparin Patient informed that due to her history of narcotic abuse she will only be treated for the shortest duration necessary with morphine above and quickly transitioned to nonnarcotic medication when appropriate Inpatient E&M: [id number] Init Hosp L3
[2019-07-29 00:55] VITALS: BMI 21.6; BMI 25.6
[2019-07-29 01:00] VITALS: BP 137/75; PULSE 67; RESP 16; TEMP 36.9; O2SAT 99
[2019-07-29] MEDS: proMETHazine 25 MG/ML Syringe 12.5 MG IV (01:53)
[2019-07-29] MEDS: 0.9% Saline Lock 10 ML Syringe IV (01:53)
--- NOTE | 2019-07-29 03:39 | NURSING ---
Pt called for pain medication. Obtained pain medication and entered pt's room. Pt stated she was leaving and requested IV to be removed so she could leave. When enquired about why the patient was leaving she stated she could manage her pancreatitis at home and be in pain at home. Pt was upset that her pain medication was 45 minutes late. This nurse apologized multiple times and stated she had her pain medication in her hands. Pt refused the pain medication and requested her IV to be removed. Pt stated she had already called her daughter to pick her up. This nurse paged the Hospitalist to notify of pt leaving AMA and contacted the nursing vendor quality supervisor. Pt read through the AMA form but refused to sign it. Pt escorted out with security at 0328hrs
== END 2019-07-29 03:28 | disposition left against medical advice (07) ==
LOC: ED 23:38 → MS3 07-29 07:28
PROVIDERS: Admitting Provider Family Medicine; Emergency Provider Emergency Medicine; Visit Provider Family Medicine
DX: K85.20 Alcohol induced acute pancreatitis without necrosis or infection (principal); K86.1 Other chronic pancreatitis; F10.10 Alcohol abuse, uncomplicated; Z79.899 Other long term (current) drug therapy; F19.21 Other psychoactive substance dependence, in remission; F17.210 Nicotine dependence, cigarettes, uncomplicated; F43.20 Adjustment disorder, unspecified
CPT/HCPCS: 71045; 80053; 80320; 83690; 84484; 85025; 93005; 96361; 96374; 96375; 99218; 99285; J7030; A4216; G0378; G0480; J2405

== ENCOUNTER 2020-08-22 16:53 | Inpatient (IN) | payer MEDICAID, SELFPAY ==
[2019-07-29 00:55] VITALS: BMI 25.6
[2020-08-22 16:54] VITALS: BP 116/76; PULSE 108; RESP 16; TEMP 36.7; O2SAT 98; BMI 17.1
[2020-08-22 16:56] VITALS: BP 116/76; PULSE 108; RESP 16; TEMP 36.7; O2SAT 98
--- NOTE | 2020-08-22 17:47 | EDS_ITS ---
HPI History of Present Illness Chief Complaint: Abd Pain Narrative Narrative: Presenting with epigastric pain. She has a history of pancreatitis. She states she has not had this in about a year. Patient states that she drinks about 1/5 in 2 days. She states she has had withdrawal before as well. Patient states she has been drinking for a long time and cannot elaborate on how long. Patient has not had any fever, vomiting, constipation, diarrhea. She does admit to nausea. Patient's last drink was about 1:59 AM this morning. [facility] Medical History (Updated 08/22/20 @ 21:49 by Jg Alex) Anxiety Depression Smoker Substance abuse SVT (supraventricular tachycardia) Home Medications buprenorphine HCl 8 mg SUBLINGUAL TID 08/22/20 [History Last Taken 08/21/20] Allergy/AdvReac Type Severity Reaction Status Date / Time Sulfa (Sulfonamide Allergy Hives Verified 08/22/20 16:57 Antibiotics) Social History Smoking Status: Current every day smoker tobacco type: cigarettes ROS ROS ED Constitutional Constitutional ED: Denies chills or fever(s) Eyes Eyes: Denies blurry vision or diplopia ENT ENT ED: Denies rhinorrhea or sore throat Cardiovascular Cardiovascular: Denies chest pain or palpitations Respiratory/Chest Respiratory/Chest: Denies cough or dyspnea Gastrointestinal Gastrointestinal: Reports abdominal pain and nausea; Denies constipation, diarrhea or vomiting Genitourinary Genitourinary ED: Denies dysuria or hematuria Musculoskeletal Musculoskeletal: Denies arthralgias or myalgias Integumentary Denies abscess or rash Neurologic Neurologic: Denies headache(s) or paresthesias EXAM Physical Exam Const Vital Signs: 08/22/20 16:54 08/22/20 16:56 Temperature 98.1 F 98.1 F Temperature Source Temporal Temporal Pulse Rate 108 H 108 H Respiratory Rate 16 16 Blood Pressure 116/76 116/76 Blood Pressure Mean 89 89 Pulse Ox 98 98 Oxygen Delivery Method Room Air Room Air Positive well nourished General Appearance ED: NAD HEENT Reports moist mucous membranes Negative for trauma Eyes PERRL and EOMs intact bilaterally General Eye ED: Negative for scleral icterus Resp normal respiratory effort and clear to auscultation bilaterally Cardio regular rhythm Rate: tachycardic GI GI Narrative: Focal epigastric tenderness to palpation. Abdomen is nonperitoneal. Extremity normal to inspection General Extremety ED: Negative for edema or tenderness General Extremity: Negative for edema Neuro oriented x3 and CN's II-XII intact bilaterally Sensorium / Orientation: alert Psych mental status grossly normal Skin no rashes or lesions noted and no wounds General Skin Exam: Negative for jaundice MDM MDM MDM Narrative Medical decision making narrative: Patient presented with epigastric pain. She states she is an everyday drinker. Patient states she has had withdrawal in the past. She is concerned she might have pancreatitis given her history of pancreatitis. Last drink was about 1:59 AM this morning. She feels that if she has to stop drinking due to pancreatitis she would need detox given her history of withdrawal. Patient's CBC shows a white blood cell count of 8.3, hemoglobin [place] are stable. Platelets are normal. Renal function is normal. Potassium is slightly low at 3.2. Total bilirubin is elevated at 1.7, direct bilirubin 0.51, AST 211, ALT 120, alk phos 136. Lipase is 1349. Patient was given morphine and Zofran in the ED as well as IV fluids. Patient states that she will need detox to stop drinking in order to help with her pancreatitis. Discussed with hospitalist who is amenable to admission and detox. After the patient had gone to the floor her urinalysis did return and is consistent with UTI. I contacted the hospitalist with this result to ensure she was given antibiotics. Impression: 1. EtOH abuse 2. EtOH detox 3. Acute pancreatitis 4. Elevated LFTs 5. UTI Lab Data Attestation: I reviewed the patient's lab results. Labs: Laboratory Results - last 24 hr 08/22/20 08/22/20 08/22/20 17:40 17:40 17:40 WBC 8.3 RBC 4.30 Hgb 15.0 Hct 42.8 MCV 99.5 H MCH 34.9 H MCHC 35.0 RDW Std Deviation 46.4 H RDW Coeff of Bebo 12.6 Plt Count 189 MPV 10.0 Immature Gran % (Auto) 0.200 Neut % (Auto) 76.5 H Lymph % (Auto) 17.3 L [place] % (Auto) 5.0 Eos % (Auto) 0.4 Baso % (Auto) 0.6 Absolute Neuts (auto) 6.3 Absolute Lymphs (auto) 1.43 Nucleated RBC % 0 Sodium 140 Potassium 3.2 L Chloride 104 Carbon Dioxide 26.0 Anion Gap 10 BUN 8 Creatinine 0.44 L Estim Creat Clear Calc 147.95 Est GFR (MDRD) Af Amer 202 Est GFR (MDRD) Non-Af 167 BUN/Creatinine Ratio 18.2 Glucose 79 Calcium 8.8 Total Bilirubin 1.70 H Direct Bilirubin 0.51 H AST 211 H ALT 120 H Alkaline Phosphatase 136 H Total Protein 7.5 Albumin 4.1 Globulin 3.4 Lipase 1349 H Urine Color Urine Clarity Urine pH Ur Specific [place] Urine Protein Urine Glucose (UA) Urine Ketones Urine Occult Blood Urine Nitrite Urine Bilirubin Urine Urobilinogen Ur Leukocyte Esterase Urine RBC Urine WBC Ur Squamous Epith Cells Amorphous Sediment Urine Bacteria Urine Mucus 08/22/20 18:19 WBC RBC Hgb Hct MCV MCH MCHC RDW Std Deviation RDW Coeff of Bebo Plt Count MPV Immature Gran % (Auto) Neut % (Auto) Lymph % (Auto) [place] % (Auto) Eos % (Auto) Baso % (Auto) Absolute Neuts (auto) Absolute Lymphs (auto) Nucleated RBC % Sodium Potassium Chloride Carbon Dioxide Anion Gap BUN Creatinine Estim Creat Clear Calc Est GFR (MDRD) Af Amer Est GFR (MDRD) Non-Af BUN/Creatinine Ratio Glucose Calcium Total Bilirubin Direct Bilirubin AST ALT Alkaline Phosphatase Total Protein Albumin Globulin Lipase Urine Color Yellow Urine Clarity Cloudy Urine pH 6.0 Ur Specific [place] 1.020 Urine Protein 30 H Urine Glucose (UA) Normal Urine Ketones 50 H Urine Occult Blood 25 H Urine Nitrite Positive H Urine Bilirubin Negative Urine Urobilinogen 1 H Ur Leukocyte Esterase 500 H Urine RBC 0-5 SEEN Urine WBC 25-50 SEEN Ur Squamous Epith Cells 0-5 SEEN Amorphous Sediment 2+ URATE Urine Bacteria 3+ Urine Mucus 2+ Radiography Diagnostic Testing: Radiology Impression Abdomen/Pelvis CT 08/22/20 18:54 IMPRESSION: 1. Mild pancreatitis. No peripancreatic fluid collections or parenchymal necrosis. 2. Severe hepatic steatosis, probably impending/early cirrhosis. Electronically Signed: Branden Estrada MD at 19:40 EDT Tel , Service support , Discharge Plan Disposition Disposition: Acute Care Hospital [facility] Discharge Date/Time: 08/22/20 21:31
[2020-08-22 17:57] LABS: Absolute Lymphocyte Count 1.43 X10^3/uL (0.83-4.51); Absolute Neutrophil Count 6.3 X10^3/uL (2.0-7.7); Basophil# 0.05 X10^3/uL; Basophil% 0.6 % (0-1); Eosinophil# 0.03 X10^3/uL; Eosinophils% 0.4 % (0-5); Hematocrit 42.8 % (37-47); Lymphocyte # 1.43 X10^3/ul (0.83-4.51); Lymphocyte % 17.3 % (19-41); Mean Corpuscular Hgb 34.9 pg (27.0-32.0); Mean Corpuscular Volume 99.5 fL (81-99); Monocyte# 0.41 X10^3/uL; NRBC Flagged by Analyzer 0 % (0-5); Neutrophil # 6.33 X10^3/uL (2.7-7.7); Neutrophil % 76.5 % (47-70); Platelet Count 189 K/mm3 (150-450); RBC Distribution Width CV 12.6 % (11.6-14.6); RBC Distribution Width SD 46.4 fl (35.1-43.9); White Blood Count 8.3 K/mm3 (4.4-11.0)
[2020-08-22 18:06] LABS: Anion Gap 10 (5-15); BUN 8 mg/dL (7-18); BUN/Creat Ratio 18.2 RATIO (10-20); Calcium,Total 8.8 mg/dL (8.5-10.1); Chloride 104 mmol/L (98-107); Creatinine, Serum 0.44 mg/dL (0.55-1.02); EST Glomerular Filtration Rate 167 mL/min (>60); Est Glom Filt Rate - Afr Amer 202 mL/min (>60); Estimated Creatinine Clearance 147.95 ml/min; Glucose 79 mg/dL (74-106); Potassium 3.2 mmol/L (3.5-5.1); Sodium Level 140 mmol/L (136-145)
[2020-08-22] MEDS: 0.9% Normal Saline 1,000 ML 999 ML IV (18:17)
[2020-08-22] MEDS: Morphine 4 MG/ML Syringe IV (18:17)
[2020-08-22] MEDS: Ondansetron 4 MG/2 ML Vial IV (18:17)
[2020-08-22 18:29] LABS: Color, Urine Yellow (Yellow); Glucose, Dipstick Normal (Normal); Ketone-Dipstick 50 mg/dl (Negative); Leukocyte Esterase-Dipstick 500 /ul (Negative); Nitrite-Dipstick Positive (Negative); Occult Blood-Urine 25 /ul (Negative); Protein-Dipstick 30 mg/dl (Negative); Urine Bilirubin Dipstick Negative (Negative); Urine Clarity Cloudy (Clear); Urine Urobilinogen 1 mg/dl (Normal)
[2020-08-22 18:36] LABS: Bacteria 3+ /hpf (None Seen); Mucous, Urine 2+ /hpf (<or=2+); Red Blood Cells-Urine 0-5 SEEN /hpf (0-5); Squamous Epithelial Cells - UA 0-5 SEEN /hpf (5-10); White Blood Cells 25-50 SEEN /hpf (0-5)
[2020-08-22 18:37] LABS: Amorphous Sediment 2+ URATE
[2020-08-22 18:39] LABS: AST(SGOT) 211 U/L (15-37); Alanine Aminotransfer ALT/SGPT 120 U/L (13-56); Albumin, Serum 4.1 g/dL (3.2-5.0); Alkaline Phosphatase 136 U/L (45-117); Bilirubin, Direct 0.51 mg/dL (0.00-0.30); Globulin 3.4 g/dL (2.2-4.2); Lipase 1349 U/L (73-393); Protein, Total 7.5 g/dL (6.4-8.2)
--- NOTE | 2020-08-22 18:54 | CT_ITS ---
STUDY: CT ABDOMEN AND PELVIS WITH CONTRAST REASON FOR EXAM: Female, 39 years old. Abdominal pain epigastric pain elevated lipase recurrent pancreatitis RADIATION DOSAGE (If Supplied By Facility): CTDIvol = ( 13.06 ) mGy, DLP = ( 328.26 ) mGycm TECHNIQUE: CT images were obtained from the dome of the diaphragm to the symphysis pubis without oral contrast. IV 100mL Isovue-300 was administered. Sagittal and coronal images were reconstructed. Individualized dose optimization techniques were used for this CT. COMPARISON: 20 August 2015 FINDINGS: The visualized lung bases are unremarkable. The visualized portions of the heart are within normal limits. Liver is severely fatty infiltrated and moderately enlarged. Portal and hepatic veins are patent. There is no biliary dilation. Gallbladder is normal. There is diffuse moderate extent peripancreatic inflammation and fluid without fluid collections. There is pancreatic head inflammation. There is no pancreatic parenchymal necrosis. Duct is normal and not dilated. Kidneys are normal. There are no stones or hydronephrosis. Spleen is normal. There is a benign 2 cm left adrenal adenoma with normal right adrenal. There is increased number of retroperitoneal lymph nodes along the left side of the aorta measuring up to 1.3 cm. This was present to a slightly lesser degree 5 years prior and is likely inflammatory reactive. There is no intestinal obstruction. Appendix is not seen. Bladder contains gas, most probably due to recent instrumentation. Uterus is removed. Both ovaries are mildly enlarged with cystic structures up to 3.8 cm. There is anasarca. There is a small amount of free fluid in the pelvis. Osseous structures are intact. CT/Abdomen/Pelvis W IV Cont ONLY IMPRESSION: 1. Mild pancreatitis. No peripancreatic fluid collections or parenchymal necrosis. 2. Severe hepatic steatosis, probably impending/early cirrhosis. Electronically Signed: Branden Estrada MD at 19:40 EDT Tel , Service support ,
--- NOTE | 2020-08-22 20:06 | PCM.HP.STD ---
HPI - General General Date of Admission: 08/22/20 HPI Narrative YESIKA ISBELL, is a 39 F with a PMH as outlined who presents via the ED with a complaint of abdominal pain. She has a history of pancreatitis and alcohol intake, and drinks about a fifth of vodka daily. She drinks every day and has had withdrawal before. Her last drink was 1am today. She admitted to nausea but denied any fever, chills, nausea, vomiting or diarrhea. Review of systems is otherwise negative. Vitals showed BP of 116/76, GA of 108, RR of 16 adn sats of 98% on room air. CBC showed Hb of 15, wbc of 8.3 and platelets of 189. Chemistry showed sodium of 140, K of 3.2, Cr of 0.44 and total luiz of 1.7,with elevated liver enzymes. Lipase was 1349. She is being admitted to be managed for acute pancreatitis due to alcohol intake. [place] also requesting for detox. [facility] Home Medications NK 08/22/20 [History Last Taken Unknown] Allergy/AdvReac Type Severity Reaction Status Date / Time Sulfa (Sulfonamide Allergy Hives Verified 08/22/20 16:57 Antibiotics) Social History Smoking Status: Current every day smoker tobacco type: cigarettes ROS Constitutional Constitutional: Denies anorexia, chills, fatigue, fever(s), malaise or weakness Eyes Eyes: Denies change in vision or double vision ENT HEENT: Denies abnormal hearing, dysphagia, headache(s) or nasal congestion Respiratory/Chest Respiratory/Chest: Denies cough, dyspnea, productive cough, shortness of breath at rest or shortness of breath with exertion Gastrointestinal Gastrointestinal: Reports abdominal pain; Denies coffee ground emesis, constipation, diarrhea, dyspepsia, hematemesis, nausea or vomiting Genitourinary Genitourinary: Denies burning urination or dysuria Musculoskeletal Musculoskeletal: Denies arthralgias, back pain or joint pain Neurologic Neurologic: Denies confusion, focal weakness, numbness, seizure-like activity or seizures Psychiatric Psychiatric: Denies anxiety Hematologic/Lymphatic Hematologic/Lymphatic: Denies anemia Vital Signs Vital Signs Vital Signs: 08/22/20 16:54 08/22/20 16:56 Temperature 98.1 F 98.1 F Temperature Source Temporal Temporal Pulse Rate 108 H 108 H Respiratory Rate 16 16 Blood Pressure 116/76 116/76 Blood Pressure Mean 89 89 Pulse Ox 98 98 Oxygen Delivery Method Room Air Room Air Weight Weight: 122 lb 12.76 oz Body Mass Index (BMI) 17.1 Physical Exam Const alert, oriented x3 and no apparent distress General Appearance: cooperative HEENT normocephalic, head/scalp atraumatic, hearing grossly normal bilaterally and moist oral mucous membranes Eyes PERRL, EOMs intact bilaterally and conjunctivae normal Neck no lymphadenopathy Resp normal respiratory effort, no retractions, no use of accessory muscles and clear to auscultation bilaterally Cardio regular rate, regular rhythm, S1 normal heart sound, S2 normal heart sound and no murmurs GI normal to inspection, nondistended, normoactive bowel sounds, soft to palpation and non-distended; Negative for hepatosplenomegaly GI Narrative: mild epigstric Auscultation: Negative for hypoactive bowel sounds Extremity normal to inspection, full ROM and no clubbing, cyanosis or edema Peripheral Pulses: Yes pulses 2+ throughout Skin no rashes or lesions noted Neuro oriented x3 Sensorium / Orientation: awake and alert Psych affect normal Results Lab / Micro Data Result Diagrams: 08/22/20 17:40 08/22/20 17:40 Labs: Laboratory Results - last 24 hr 08/22/20 17:40: WBC 8.3, RBC 4.30, Hgb 15.0, Hct 42.8, MCV 99.5 H, MCH 34.9 H, MCHC 35.0, RDW Std Deviation 46.4 H, RDW Coeff of Bebo 12.6, Plt Count 189, MPV 10.0, Immature Gran % (Auto) 0.200, Neut % (Auto) 76.5 H, Lymph % (Auto) 17.3 L, [place] % (Auto) 5.0, Eos % (Auto) 0.4, Baso % (Auto) 0.6, Absolute Neuts (auto) 6.3, Absolute Lymphs (auto) 1.43, Nucleated RBC % 0 08/22/20 17:40: Sodium 140, Potassium 3.2 L, Chloride 104, Carbon Dioxide 26.0, Anion Gap 10, BUN 8, Creatinine 0.44 L, Estim Creat Clear Calc 147.95, Est GFR (MDRD) Af Amer 202, Est GFR (MDRD) Non-Af 167, BUN/Creatinine Ratio 18.2, Glucose 79, Calcium 8.8 08/22/20 17:40: Total Bilirubin 1.70 H, Direct Bilirubin 0.51 H, AST 211 H, ALT 120 H, Alkaline Phosphatase 136 H, Total Protein 7.5, Albumin 4.1, Globulin 3.4, Lipase 1349 H 08/22/20 18:19: Urine Color Yellow, Urine Clarity Cloudy, Urine pH 6.0, Ur Specific [place] 1.020, Urine Protein 30 H, Urine Glucose (UA) Normal, Urine Ketones 50 H, Urine Occult Blood 25 H, Urine Nitrite Positive H, Urine Bilirubin Negative, Urine Urobilinogen 1 H, Ur Leukocyte Esterase 500 H, Urine RBC 0-5 SEEN, Urine WBC 25-50 SEEN, Ur Squamous Epith Cells 0-5 SEEN, Amorphous Sediment 2+ URATE, Urine Bacteria 3+, Urine Mucus 2+ Radiology Impression Abdomen/Pelvis CT 08/22/20 18:54 IMPRESSION: 1. Mild pancreatitis. No peripancreatic fluid collections or parenchymal necrosis. 2. Severe hepatic steatosis, probably impending/early cirrhosis. Electronically Signed: Branden Estrada MD at 19:40 EDT Tel , Service support , Assessment & Plan Assessment/Plan (1) Acute recurrent pancreatitis: (2) Alcohol abuse: PLAN: #Acute pancreatitis due to alcohol abuse admit to med surg patient was tolerating clear liquids in the ED, so will keep on clear liquids and advance as tolerated IV morphine prn, PO oxycodone and PO tylenol prn #Alcohol abuse patient drinks at least a 5th of vodka daily patient was initially interested in the [facility] program, but backed out after being told about the restrictions contained therein will put patient on alcohol withdrawal protocol with phenobarbital whilst she is in the hospital for acute pancreatitis due to risk of withdrawal oral thiamine, folic acid and multivites #History of opiate dependence: on subutex DVT prophylaxis: lovenox Charges/Coding Visit Charges Inpatient E&M: 91301 Init Hosp L3
[2020-08-22 20:33] VITALS: BP 133/70; PULSE 76; RESP 19; TEMP 36.6; O2SAT 99
[2020-08-22 20:34] VITALS: BP 133/70; PULSE 84; RESP 19; O2SAT 99
[2020-08-22 21:35] VITALS: BMI 17.6
[2020-08-22 21:58] VITALS: BP 119/71; PULSE 73; RESP 16; TEMP 36.6; O2SAT 93
[2020-08-22] MEDS: Phenobarbital 32.4 MG Tablet 97.2 MG PO (22:09)
[2020-08-22] MEDS: Morphine 2 MG/ML Syringe IV (22:09)
[2020-08-22] MEDS: 0.9% Normal Saline 1,000 ML 150 ML IV (22:09)
[2020-08-22] MEDS: BUPRENORPHINE HCL 8 MG TAB.SUBL SL (22:46)
[2020-08-22] MEDS: LORazepam 1 MG Tablet 2 MG PO (22:58)
[2020-08-22] MEDS: traZODone 100 MG Tablet PO (22:59)
[2020-08-22] MEDS: hydrOXYzine PAM 25 MG Capsule 50 MG PO (23:52)
[2020-08-23] MEDS: Phenobarbital 32.4 MG Tablet 97.2 MG PO ×2 (01:50→06:03)
[2020-08-23 04:42] VITALS: BP 104/73; PULSE 75; RESP 16; TEMP 36.6; O2SAT 99
[2020-08-23] MEDS: 0.9% Normal Saline 1,000 ML 150 ML IV (04:44)
[2020-08-23 05:36] LABS: Absolute Lymphocyte Count 1.15 X10^3/uL (0.83-4.51); Basophil# 0.04 X10^3/uL; Basophil% 0.6 % (0-1); Eosinophil# 0.01 X10^3/uL; Eosinophils% 0.1 % (0-5); Hematocrit 39.6 % (37-47); Hemoglobin 13.4 g/dL (12.0-15.0); Lymphocyte # 1.15 X10^3/ul (0.83-4.51); Lymphocyte % 17.2 % (19-41); Mean Corp Hgb Conc 33.8 g/dL (32-36); Mean Corpuscular Hgb 34.8 pg (27.0-32.0); Mean Corpuscular Volume 102.9 fL (81-99); Mean Platelet Vol. 10.3 fl (6.2-12.0); Monocyte# 0.41 X10^3/uL; Monocyte% 6.1 % (0-10); NRBC Flagged by Analyzer 0 % (0-5); Neutrophil # 5.04 X10^3/uL (2.7-7.7); Neutrophil % 75.7 % (47-70); Platelet Count 156 K/mm3 (150-450); RBC Distribution Width CV 12.7 % (11.6-14.6); RBC Distribution Width SD 47.8 fl (35.1-43.9); Red Blood Count 3.85 M/mm3 (4.2-5.4); White Blood Count 6.7 K/mm3 (4.4-11.0)
[2020-08-23 06:04] LABS: ALB/GLOB Ratio 1.2 RATIO (0.9-2.4); AST(SGOT) 513 U/L (15-37); Alanine Aminotransfer ALT/SGPT 192 U/L (13-56); Albumin, Serum 3.2 g/dL (3.2-5.0); Alkaline Phosphatase 125 U/L (45-117); Anion Gap 10 (5-15); BUN 10 mg/dL (7-18); BUN/Creat Ratio 36.2 RATIO (10-20); Chloride 104 mmol/L (98-107); Creatinine, Serum 0.28 mg/dL (0.55-1.02); EST Glomerular Filtration Rate 286 mL/min (>60); Est Glom Filt Rate - Afr Amer 346 mL/min (>60); Estimated Creatinine Clearance 238.76 ml/min; Globulin 2.6 g/dL (2.2-4.2); Glucose 60 mg/dL (74-106); Potassium 3.6 mmol/L (3.5-5.1); Protein, Total 5.8 g/dL (6.4-8.2); Sodium Level 138 mmol/L (136-145)
[2020-08-23] MEDS: BUPRENORPHINE HCL 8 MG TAB.SUBL SL ×2 (06:04→14:00)
[2020-08-23 08:02] VITALS: PULSE 70
[2020-08-23] MEDS: Folic Acid 1 MG Tablet PO (08:15)
[2020-08-23] MEDS: Thiamine Hydrochloride 100 MG Tablet PO (08:15)
[2020-08-23] MEDS: Ondansetron 8 MG Tablet PO (08:15)
[2020-08-23] MEDS: levoFLOXacin 500 MG Tablet PO (09:54)
[2020-08-23] MEDS: 0.9% Saline Lock 10 ML Syringe IV (09:58)
[2020-08-23 10:00] VITALS: BP 107/64; PULSE 75; RESP 16; TEMP 36.7; O2SAT 96
--- NOTE | 2020-08-23 10:38 | CASEMGMT ---
[place] Assessment: Face to Face with pt for initial transition planning/care coordination assessment. RN LIZ introduced self and role at [facility], pt voices understanding and consents to assessment. Pt is A/O x4 and answers all questions appropriately at this time. Pt sitting up in bed with sig other at bedside in no distress. Care providers, pharmacy, and demographics verified/updated. Admitting Dx: acute pancreatitis PCP:Pt denies having a PCP. She denies need for a pamphlet with local PCP's. Pt states I will find someone. Specialists: Pt denies having any specialists. Preferred Pharmacy: [facility] Insurance: [facility] Prescription Benefit: yes LW/HPOA: Pt denies having a LW/DPOA. LNOK: Nat Lewis dtr; justine Richard other Living Arrangements: Pt lives with sig other in a single story house with 2 steps to enter. Pt is I in ADL's and denies concerns at home. Transportation: Pt drives self and denies concerns with transportation. DME/HHC/SNF: Pt denies having any DME, previous history of SNF or HHC. Pt states no concerns with going home at time of dc. Pt states no further concerns/needs. CM to follow. Advised pt to ask CM if any further question/concerns/needs arise, voices understanding. Pt Goal: Home Plan: Home with family support.
--- NOTE | 2020-08-23 12:47 | CASEMGMT ---
Social Work Note ROSARIO reviewed chart. Pt with daily ETOH consumption of fifth of vodka. Pt with ETOH use related pancreatitis. SW in to speak with pt. SW introduced self and role at [facility]. Pt has guest present in room. Pt gave this worker permission to speak to her in front of her guest. SW asked pt about ETOH use, asked if pt drinks fifth of vodka. Pt states yeah sure, that's correct. SW asked pt if she wanted any ETOH resources ([employer] Meetings, Counseling resources, treatment resources) and pt denied. Pt states she already see's a counselor 1x a week at [facility] in [place]. Pt denied additional needs or concerns at this time. Mariajose Bullock LUMBER HANDLER, MAGNETIC TAPE TYPEWRITER OPERATOR
[2020-08-23] MEDS: 0.9% Normal Saline 1,000 ML 175 ML IV (12:55)
[2020-08-23 13:52] VITALS: BP 95/52; PULSE 75; PULSE 90; RESP 12; TEMP 36.6; O2SAT 95
--- NOTE | 2020-08-23 15:34 | PCM.DC ---
Discharge Instructions Diet Discharge Diet: No restrictions Activity Discharge Activity: Return to Normal Activity Weight Bearing Status: Full weight bearing Follow Up Care Test Results: Test results from this visit will be discussed in further detail at your follow-up appointment, if applicable. Discharge Plan Admission Admit Date/Time: 08/22/20 20:18 Primary Reason for Your Visit: alcohol induced recurrent pancreatitis Attending Provider: Benson Diaz Primary Care Provider: Care Physician,No Primary Instructions Additional Instructions / Restrictions: Do not drink alcohol, seek detox services as needed Discharge Orders/Prescriptions Prescriptions: Continued buprenorphine HCl 8 mg Tablet, Sublingual 8 mg SUBLINGUAL TID RF: 0 Referrals / Follow Up: Care Physician,No Primary [Primary Care Provider] - Within 1 Month Disposition Disposition (needs filled in before D/C Order can be placed): Home, Self Care
--- NOTE | 2020-08-23 15:39 | NURSING ---
[facility] states she had offered her information and pt declined it, she is seeing a counselor in [place].
--- NOTE | 2020-08-23 15:50 | NURSING ---
Pt's two tabs returned (Subutex).
--- NOTE | 2020-08-23 16:21 | PCM.DC.SUM ---
Providers Date of Admission: 08/22/20 Date of Discharge: 08/23/20 Primary Care Physician: No Primary Care Phys Reason For Visit: ACUTE PANCREATITIS, ALCOHOL DETOX Diagnosis Discharge Diagnosis (1) Acute recurrent pancreatitis: Status: Acute Code(s): K85.90 - Acute pancreatitis without necrosis or infection, unspecified (2) Alcohol abuse: Status: Chronic Code(s): F10.10 - Alcohol abuse, uncomplicated Plan: 1. Recurrent alcoholic pancreatitis #2 alcoholism #3 alcoholic hepatitis #4 acute cystitis Medications at Discharge Home Medications buprenorphine HCl 8 mg SUBLINGUAL TID 08/22/20 Hospital Course Operations None Procedures None Summary of Care Provided Minutes Spent on Discharge: 30 Hospital Course: This 39-year-old white female was seen in the emergency room at [facility] with a chief complaint of epigastric pain, she has a history of pancreatitis in the past, she denies having it recently however. Patient admitted to drinking about 1/5 of liquor every 2 days. Work-up in the emergency room included a CBC which showed a normal white blood cell count, patient's chemistry was remarkable for potassium of 3.2, patient's bilirubin was elevated at 1.7, AST was 211, ALT was 120, alkaline phosphatase was 136, patient's lipase was 1349. Patient was patient was asked whether she was interested in alcohol detox services, patient stated she was not. Patient was admitted to [place] [address], she was given IV fluids and analgesics as needed. On the morning of 08/23/2020, I talked at length with the patient, her abdomen was soft and she denied any significant abdominal pain. I asked her again whether she would want follow-up for alcohol detox services and she stated that she was not interested in that at this time. She questioned whether she could be discharged today and I confirmed that if she was able to intake fluids and eat without difficulty that she could be discharged home, patient desired to be discharged. On 08/23/2020, patient was seen and examined: On examination she appeared in good health and spirits, she does not appear to be in any distress. Vital signs as documented. Skin warm and dry and without overt rashes. Neck without JVD, thyroid appears normal, trachea is midline, neck is supple. Lungs clear, normal air movement was noted. Heart exam notable for regular rhythm, normal sounds and absence of murmurs, rubs or gallops. Abdomen unremarkable and without evidence of organomegaly, masses, or abdominal aortic enlargement, bowel sounds are present in all 4 quadrants, no abdominal tenderness was noted. Extremities nonedematous, no cyanosis was noted, no clubbing was noted. Neuro: Cranial nerves II through XII are grossly intact, no focal motor deficits were noted, sensation to light touch and pinprick is intact, motor exam 5/5 throughout. Psych: Patient is alert and oriented x3, she does not appear anxious or depressed, she does not appear agitated. Patient was discharged home in stable condition on 08/23/2020, due to the patient's unwillingness to seek outpatient alcohol detox services, prognosis is guarded at this time, patient understands that she needs to avoid alcohol altogether. As a further note, a prescription for antibiotics was not called in for the patient prior to her discharge, it appears that she has an acute cystitis but I was not able to call in this prescription for her before she left and I was then not able to get a hold of her or her significant other by phone to confirm where to call a prescription for antibiotics into. I also attempted to call a number that was listed in her chart as her daughter's phone number but this was the wrong phone number. I had nursing leave a message with her significant other to contact the hospital about the patient needing a prescription for her cystitis. Weight / BMI Weight Weight: 57.2 kg Body Mass Index (BMI) 17.6 ABG / Lab / Microbiology Data Result Diagrams: 08/23/20 05:10 08/23/20 05:10 Laboratory: Laboratory Results - last 24 hr 08/22/20 17:40: WBC 8.3, RBC 4.30, Hgb 15.0, Hct 42.8, MCV 99.5 H, MCH 34.9 H, MCHC 35.0, RDW Std Deviation 46.4 H, RDW Coeff of [place]eb[place] 12.6, Plt Count 189, MPV 10.0, Immature Gran % (Auto) 0.200, Neut % (Auto) 76.5 H, Lymph % (Auto) 17.3 L, [place] % (Auto) 5.0, Eos % (Auto) 0.4, Baso % (Auto) 0.6, Absolute Neuts (auto) 6.3, Absolute Lymphs (auto) 1.43, Nucleated RBC % 0 07/18/21 17:40: Sodium 140, Potassium 3.2 L, Chloride 104, Carbon Dioxide 26.0, Anion Gap 10, BUN 8, Creatinine 0.44 L, Estim Creat Clear Calc 147.95, Est GFR (MDRD) Af Amer 202, Est GFR (MDRD) Non-Af 167, BUN/Creatinine Ratio 18.2, Glucose 79, Calcium 8.8 08/22/20 17:40: Total Bilirubin 1.70 H, Direct Bilirubin 0.51 H, AST 211 H, ALT 120 H, Alkaline Phosphatase 136 H, Total Protein 7.5, Albumin 4.1, Globulin 3.4, Lipase 1349 H 08/22/20 18:19: Urine Color Yellow, Urine Clarity Cloudy, Urine pH 6.0, Ur Specific [place] 1.020, Urine Protein 30 H, Urine Glucose (UA) Normal, Urine Ketones 50 H, Urine Occult Blood 25 H, Urine Nitrite Positive H, Urine Bilirubin Negative, Urine Urobilinogen 1 H, Ur Leukocyte Esterase 500 H, Urine RBC 0-5 SEEN, Urine WBC 25-50 SEEN, Ur Squamous Epith Cells 0-5 SEEN, Amorphous Sediment 2+ URATE, Urine Bacteria 3+, Urine Mucus 2+ 08/23/20 05:10: WBC 6.7, RBC 3.85 L, Hgb 13.4, Hct 39.6, MCV 102.9 H, MCH 34.8 H, MCHC 33.8, RDW Std Deviation 47.8 H, RDW Coeff of [place] 12.7, Plt Count 156, MPV 10.3, Immature Gran % (Auto) 0.300, Neut % (Auto) 75.7 H, Lymph % (Auto) 17.2 L, [place] % (Auto) 6.1, Eos % (Auto) 0.1, Baso % (Auto) 0.6, Absolute Neuts (auto) 5.0, Absolute Lymphs (auto) 1.15, Nucleated RBC % 0 08/23/20 05:10: Sodium 138, Potassium 3.6, Chloride 104, Carbon Dioxide 24.0, Anion Gap 10, BUN 10, Creatinine 0.28 L, Estim Creat Clear Calc 238.76, Est GFR (MDRD) Af Amer 346, Est GFR (MDRD) Non-Af 286, BUN/Creatinine Ratio 36.2 H, Glucose 60 L, Calcium 8.0 L, Total Bilirubin 2.20 H, AST 513 H, ALT 192 H, Alkaline Phosphatase 125 H, Total Protein 5.8 L, Albumin 3.2, Globulin 2.6, Albumin/Globulin Ratio 1.2 Radiography Diagnostic Testing: Radiology Impression Abdomen/Pelvis CT 08/22/20 18:54 IMPRESSION: 1. Mild pancreatitis. No peripancreatic fluid collections or parenchymal necrosis. 2. Severe hepatic steatosis, probably impending/early cirrhosis. Electronically Signed: Branden Estrada MD at 19:40 EDT Tel , Service support , D/C Instructions Discharge Diet: No restrictions Weight Bearing Status: Full weight bearing Meaningful Use Info Meaningful Use Diagnoses (Choose all that apply): None applicable Discharge Plan Admission Admit Date/Time: 08/22/20 20:18 Primary Reason for Your Visit: alcohol induced recurrent pancreatitis Attending Provider: Benson Diaz Primary Care Provider: Care Physician,No Primary Instructions Additional Instructions / Restrictions: Do not drink alcohol, seek detox services as needed Discharge Orders/Prescriptions Prescriptions: Continued buprenorphine HCl 8 mg Tablet, Sublingual 8 mg SUBLINGUAL TID RF: 0 Referrals / Follow Up: Care Physician,No Primary [Primary Care Provider] - Within 1 Month Disposition Disposition (needs filled in before D/C Order can be placed): Home, Self Care Charges/Coding Visit Charges Inpatient E&M: [id number] Disch Hosp
--- NOTE | 2020-08-23 16:48 | CASEMGMT ---
Social Work Note SW updated by RN that physician wanted pt to have information on [facility]. SW updated RN that this worker did offer pt additional resources (AA meetings, counseling resources and treatment resources) and pt denied. Pt stated that she is already linked up with a counselor at [facility] in [place]. SW attempted to meet with pt again before pt left, pt not in room. Pt has been discharged from [facility]. Mariajose Bullock HALAL BUTCHER, PROCESSING ASSISTANT
== END 2020-08-23 15:50 | disposition home or self-care (01) | DRG 282 ==
LOC: ED 18:56 → MS3 20:38
PROVIDERS: Admitting Provider Student in an Organized Health Care Education/Training Program; Emergency Provider Student in an Organized Health Care Education/Training Program; Visit Provider Internal Medicine
DX: K85.20 Alcohol induced acute pancreatitis without necrosis or infection (principal); F41.9 Anxiety disorder, unspecified; F32.9 Major depressive disorder, single episode, unspecified; F10.10 Alcohol abuse, uncomplicated; K76.0 Fatty (change of) liver, not elsewhere classified; F17.210 Nicotine dependence, cigarettes, uncomplicated; N30.00 Acute cystitis without hematuria; K70.10 Alcoholic hepatitis without ascites; Y90.9 Presence of alcohol in blood, level not specified
CPT/HCPCS: 36415; 74177; 80048; 80053; 80076; 81001; 83690; 85025; 99284; 99406; J7030; Q9967; A4216; J2405